=== PATIENT | female | born 1980 | race Caucasian/White ===

== ENCOUNTER 2023-02-01 14:53 | Emergency (ER) | payer SELFPAY ==
[2023-02-01] VITALS (10 sets, daily range): BP systolic 128–154; BP diastolic 79–105; PULSE 81–107; RESP 16–20; TEMP 36.9–37.2; O2SAT 96–100
--- NOTE | ~2023-02-01 | XR_ITS ---
EXAMINATION: XR chest 2V Exam Date/Time: 02/01/2023 16:55 CDT HISTORY: sob, CP, cough x 2 days. Hx asthma Comparison: None available. RESULT: Lines, tubes, and devices: None. Lungs and pleura: Diffuse reticulonodular opacities and cuffing. Cardiomediastinal silhouette: Stable. Other: No acute osseous or upper abdominal finding. IMPRESSION: Pulmonary opacities may represent bronchiolitis, as can be seen with atypical infection, asthma, aspi ration, and small airways disease. Reviewed, dictated and finalized at location K. IMPRESSION: Pulmonary opacities may represent bronchiolitis, as can be seen with atypical i nfection, asthma, aspiration, and small airways disease.
--- NOTE | ~2023-02-01 | CT_ITS ---
EXAMINATION: CTA chest PE protocol DATE: 02/01/2023 19:34 INDICATION: pleuritic chest pain, +dimer TECHNIQUE: Computed tomography angiography (CTA) of the chest was performed with 100 mL Omnipaque-350 intravenous contrast timed to evaluate the pulmonary arteries. Coronal maximum intensity projection 3D-reconstructions were created by the technologist. The dose-length product (DLP) was 226.16 mGy-cm. Automated exposure control and iterative reconstruction technique were employed. COMPARISON: None. FINDINGS: Lung parenchyma and airways: Scattered subtle tree-in-bud and centrilobular opacities with mild bronc hial wall thickening. Airways are patent. Pleura: Unremarkable. Thoracic inlet, axillae and chest wall: Unremarkable. Thoracic aorta: Normal. Mediastinum: Normal. Heart and pericardium: Normal. Coronary artery calcifications: Absent. Upper abdomen: No significant finding. Bones: No acute osseous finding. Pulmonary arteries: Study quality: Adequate. No pulmonary emboli detected. IMPRESSION: No CT evidence of acute pulmonary embolus. Respiratory bronchiolitis. Reviewed, dictated and finalized at location K.
--- NOTE | 2023-02-01 16:52 | ECG_ITS ---
Measurements Intervals [place] Rate: 94 P: 30 AR: 123 QRS: 35 QRSD: 72 T: 49 QT: 351 QTc: 440 Interpretive Statements SINUS RHYTHM CANNOT RULE OUT SEPTAL INFARCT, AGE INDETERMINATE ABNORMAL ECG NO PREVIOUS ECG AVAILABLE FOR COMPARISON Electronically Signed On 02-01-2023 21:24:50 CDT by Solis Mcleod D.O.
--- NOTE | 2023-02-01 16:53 | ED.SOB ---
HPI - SOB/Dyspnea General Chief Complaint: Shortness of Breath/Dyspnea Stated Complaint: vomiting, sob Time Seen by Provider: 02/01/23 16:45 History of Present Illness HPI Narrative: Patient is a 43-year-old female with a history of asthma presenting with chest pain and shortness of breath. Patient states that for the last couple of days she has had left-sided chest pain. States that it is worse with taking a big breath or coughing. States that she has been coughing for the last several days as well. States that she sometimes feels short of breath. States that she used her inhaler earlier today which did seem to help. Patient states that she had 2 episodes of vomiting earlier today. No abdominal pain, constipation, diarrhea, dysuria, hematuria. Denies any leg swelling. Denies numbness or weakness. No fevers or chills. Related Data Allergies Allergy/AdvReac Type Severity Reaction Status Date / Time No Known Allergies Allergy Verified 02/01/23 17:41 Review of Systems Review of Systems: All systems reviewed & are unremarkable except as noted in HPI and below Exam Narrative: GENERAL: Well-appearing, well-nourished, and in no acute distress. HEAD: Normocephalic, atraumatic. EYES: PERRLA and EOMI. ENT: Nares clear, no rhinorrhea or epistaxis. Mucous membranes moist. NECK: Supple. CHEST: No respiratory distress. Faint scattered wheezing, no crackles; +diffuse anterior chest wall tenderness HEART: Regular rate and rhythm. No murmur heard. Normal peripheral pulses. ABDOMEN: Soft, nontender, nondistended EXTREMITIES: Normal range of motion. No edema. SKIN: Warm, dry, no rash. NEURO: No focal deficits. Alert and oriented x3. PSYCH: Normal mood and affect. Course Vital Signs Vital signs: Vital Signs Temperature 98.5 F 02/01/23 15:24 Pulse Rate 107 H 02/01/23 15:24 Respiratory Rate 18 02/01/23 15:24 Blood Pressure 133/85 02/01/23 15:24 Pulse Oximetry 100 02/01/23 15:24 Oxygen Delivery Room Air 02/01/23 15:24 Temperature 98.9 F 02/01/23 21:33 Pulse Rate 81 02/01/23 21:33 Respiratory Rate 18 02/01/23 21:33 Blood Pressure 148/79 H 02/01/23 21:33 Pulse Oximetry 99 02/01/23 21:33 Oxygen Delivery Room Air 02/01/23 17:30 MDM - SOB/Dyspnea MDM Narrative Medical decision making narrative: Patient is a 43-year-old female presenting with several days of chest pain, cough, shortness of breath. Patient was initially tachycardic though this had resolved by the time I evaluated her. Exam is otherwise remarkable for the above. Patient states that she is starting to feel improved currently. EKG per my interpretation shows normal sinus rhythm, normal axis and intervals, no ST elevations or depressions. Blood work with leukocytosis. Troponins are undetectable. Patient is negative for influenza and COVID. D-dimer was elevated so CTA PE study was obtained. There is no evidence of pulmonary embolus. There is some evidence of bronchiolitis. Patient does report a history of asthma and states that its been acting up a bit lately. She received a breathing treatment and states that she is feeling improved. States that she has an inhaler at home. Advised that she use this as needed for her shortness of breath. We will get her started on a Medrol Dosepak. Advised PCP follow-up. States that she needs a number for one which will be provided. Appropriate return precautions given. Patient voiced understanding and is agreeable with plan. Discharged in stable condition. Differential Diagnosis Differential diagnosis: Likely congestive heart failure, community acquired pneumonia, asthma with exacerbation, pulmonary embolism and other (ACS, URI) Medical Records Attestation: I reviewed the patient's medical records. Lab Data Attestation: I reviewed the patient's lab results. 02/01/23 17:34 02/01/23 17:34 Labs: Lab Results 02/01/23 Range/Units 17:34 WBC 13.5 H
[2023-02-01] MEDS: LEVALBUTEROL NEB 1.25 MG/3 ML 2.5 MG INHALATION (17:27)
[2023-02-01] MEDS: IPRATROPIUM BR 0.02% INH SOLN 0.5 MG/2.5 ML VIAL INHALATION (17:27)
[2023-02-01] MEDS: SODIUM CHLORIDE 0.9% IV 1,000 ML 999 ML IV CONT ×2 (17:42→19:17)
[2023-02-01] MEDS: ONDANSETRON INJ 4 MG/2 ML VIAL IV PUSH (17:42)
[2023-02-01 17:49] LABS: Basophils Absolute Auto 0.1 K/mm3 (0.0-0.1); Basophils Percent Auto 0.4 % (0.2-1.2); Eosinophils Absolute Auto 0.1 K/mm3 (0-0.3); Eosinophils Percent Auto 0.7 % (0-4.4); Hemoglobin 14.2 g/dL (12.0-15.0); Immature Granulocyte Absolute 0.03 K/mm3 (0.00-0.031); Immature Granulocyte Percent A 0.2 % (0-0.5); Lymphocytes Absolute Auto 1.43 K/mm3 (0.9-3.2); Lymphocytes Percent Auto 10.6 % (18.3-44.2); Mean Corpuscular Hemoglobin 30.1 pg (26-34); Mean Corpuscular Volume 91.1 fl (80-100); Mean Platelet Volume 9.1 fl (7.4-10.4); Monocytes Absolute Auto 0.9 K/mm3 (0.1-0.6); Monocytes Percent Auto 6.9 % (2.6-8.5); Neutrophils Percent Auto 81.2 % (45.5-73.1); Platelet Count Result 332 k/mm3 (150-375); Red Blood Count 4.72 M/mm3 (4.2-5.4); Red Cell Distribution Width 14.4 % (11.5-14.5); White Blood Count 13.5 K/mm3 (4.5-10.0)
[2023-02-01 17:51] LABS: Alanine Aminotransferase 26 U/L (6-35); Albumin Level 3.7 g/dL (3.5-5.1); Alkaline Phosphatase 120 U/L (38-126); Anion Gap 9 mmol/L (8-16); Aspartate Amino Transferase 38 U/L (14-36); Bilirubin,Total 0.6 mg/dL (0.2-1.3); Blood Urea Nitrogen 2 mg/dL (7-17); Carbon Dioxide 22 mmol/L (22-30); Chloride 106 mmol/L (98-107); Estimated Glomerular Filt Rate > 60; Glucose 92 mg/dL (65-110); Lipase 180 U/L (23-300); Potassium 3.9 mmol/L (3.4-5.0); Sodium 137 mmol/L (137-145)
[2023-02-01 17:55] LABS: INR 0.9; Partial Thromboplastin Time 26.5 SECONDS (22.3-36.8); Prothrombin Time 12.7 Seconds (11.1-14.7)
[2023-02-01 18:00] LABS: Ethanol 85 mg/dL (<10)
[2023-02-01 18:03] LABS: Troponin I < 0.012 ng/mL (0.000-0.034)
[2023-02-01 18:16] LABS: Influenza A QL RT-PCR Negative (Negative); Influenza B QL RT-PCR Negative (Negative); RSV RNA, RT-PCR Negative (Negative); SARS-CoV-2 RNA PCR Negative (Negative)
== END 2023-02-01 21:34 | disposition home or self-care (01) ==
PROVIDERS: Emergency Provider Emergency Medicine
DX: J45.901 Unspecified asthma with (acute) exacerbation (principal); R07.89 Other chest pain; Z20.822 Contact with and (suspected) exposure to COVID-19
CPT/HCPCS: 36415; 71046; 71275; 80053; 80307; 83690; 84484; 85025; 85380; 85610; 85730; 87637; 93005; 94640; 96361; 96374; 99284; J2405; J7030; Q9967

== ENCOUNTER 2023-06-17 11:22 | Emergency (ER) | payer SELFPAY ==
[2023-06-17 11:32] VITALS: BP 124/83; PULSE 103; RESP 18; TEMP 36.9; O2SAT 98
[2023-06-17 11:34] VITALS: BP 124/83; PULSE 103; RESP 18; TEMP 36.9; O2SAT 98
--- NOTE | 2023-06-17 11:35 | ED.SOB ---
HPI - SOB/Dyspnea General Chief Complaint: Shortness of Breath/Dyspnea Stated Complaint: Asthma Exacerbation Time Seen by Provider: 06/17/23 11:35 Source: patient Mode of arrival: ambulatory Limitations: no limitations History of Present Illness HPI Narrative: 43-year-old female with history of asthma presents for medication refill. Reports over the last week with the weather changes and harvesting of garza her asthma has been bothering her. Patient reports that she needs nebulizer solution and a new albuterol inhaler. Patient reports a mild cough with some postnasal drainage. Also has a runny nose. States last night while in bed her told her that she was wheezing in her sleep. Patient denies shortness of breath at this time but states she did have some shortness of breath earlier with exertion and chest tightness. Reports that these are her normal asthma symptoms. Patient is well-appearing. Speaking in full sentences, no respiratory distress. All systems reviewed and negative except as noted above. Related Data Home Medications Medication Instructions Recorded Confirmed albuterol 90 mcg/actuation aerosol See Rx Instructions .Route .COMPLEX 06/17/23 06/17/23 inhaler Allergies Allergy/AdvReac Type Severity Reaction Status Date / Time No Known Allergies Allergy Verified 06/17/23 11:33 Review of Systems Review of Systems: CONSTITUTIONAL: Denies fever, chills, or sweats. EYES: Denies visual changes, redness, or discharge. ENT: Denies rhinorrhea, congestion, sore throat, or otalgia. Reports postnasal drainage. CARDIOVASCULAR: Denies chest pain, palpitations, or edema. RESPIRATORY: Reports cough and dyspnea with exertion. reports wheezing. GASTROINTESTINAL: Denies abdominal pain, nausea, vomiting, or diarrhea. GENITOURINARY: Denies dysuria or hematuria. SKIN: Denies rash or itching. MUSCULOSKELETAL: Denies back pain, joint pain, or myalgia. NEUROLOGIC: Denies headache, numbness, or weakness. PSYCHIATRIC: Denies anxiety or depression. All other systems reviewed are negative, except as documented in HPI. PMFSH Comments At time of signature, agree with nursing past medical, surgical, social and family history. There is no relevant family history pertinent to the presenting complaint. Exam Narrative: GENERAL: This is a well-nourished, well-developed patient, in no apparent distress. HEAD: normocephalic, atraumatic. EYES: PERRL. Sclera clear/white. Vision is grossly intact. EARS: External ears normal, auditory canals clear and without drainage, TMs normal without perforation. Hearing grossly intact. NOSE: External nose normal with Clear nasal drainage no significant erythema or swelling to nares. THROAT: Mucous membranes moist, Clear postnasal drainage without erythema or swelling. NECK: Neck supple, non-tender without lymphadenopathy, masses or thyromegaly. CARDIOVASCULAR: Regular rate and rhythm without murmurs, gallops, or rubs. RESPIRATORY: Very mild expiratory wheeze to lower lung garza. No rales, or rhonchi. SKIN: warm, Dry, intact with no suspicious lesions or rash, good texture and turgor. NEURO: awake, alert, and oriented to person, place and time. There were no obvious focal neurologic abnormalities. EXTREMITIES: No joint tenderness, effusion, or edema noted. No calf tenderness. Negative Homans sign bilaterally. BACK: Nontender without deformity. No CVA tenderness. Course Course Level of Care: Express Care Visit Vital Signs Vital signs: Vital Signs Temperature 36.9 C 06/17/23 11:32 Pulse Rate 103 H 06/17/23 11:32 Respiratory Rate 18 06/17/23 11:32 Blood Pressure 124/83 06/17/23 11:32 Pulse Oximetry 98 06/17/23 11:32 Oxygen Delivery Room Air 06/17/23 11:32 Temperature 36.9 C 06/17/23 11:34 Pulse Rate 103 H 06/17/23 11:34 Respiratory Rate 18 06/17/23 11:34 Blood Pressure 124/83 06/17/23 11:34 Pulse Oximetry 98 06/17/23 11:34
== END 2023-06-17 11:47 | disposition home or self-care (01) ==
PROVIDERS: Emergency Provider Nurse Practitioner Family
DX: J45.909 Unspecified asthma, uncomplicated (principal); Z76.0 Encounter for issue of repeat prescription
CPT/HCPCS: 99213; G0463

== ENCOUNTER 2023-06-24 13:03 | Emergency (ER) | payer SELFPAY ==
--- NOTE | 2023-06-24 13:08 | ED.SOB ---
HPI - SOB/Dyspnea General Chief Complaint: Upper Respiratory Infection Stated Complaint: Shortness of Breath Time Seen by Provider: 06/24/23 13:13 Source: patient and RN notes reviewed Mode of arrival: ambulatory Limitations: no limitations History of Present Illness HPI Narrative: 43-year-old female presents concern for shortness of breath and wheezing. She was seen a week ago prescribe steroids, nebulizer solution, antihistamines. She reports her nebulizer machine is broken. She reports reports she has been using her out inhaler without relief. Patient has a 1 [id number] smoker Related Data Allergies Allergy/AdvReac Type Severity Reaction Status Date / Time No Known Allergies Allergy Verified 06/24/23 13:05 Review of Systems Review of Systems: CONSTITUTIONAL: Denies malaise, chills, sweats, or fever. EYES: Denies visual changes, redness, or discharge. ENT: Denies rhinorrhea, congestion, sinus pain, otalgia and sore throat. CARDIOVASCULAR: Denies chest pain, palpitations, or edema. RESPIRATORY: Reports cough., wheezing, dyspnea. GASTROINTESTINAL: Denies abdominal pain, nausea, vomiting, diarrhea SKIN: Denies rash or itching. MUSCULOSKELETAL: Denies myalgia. NEUROLOGIC: Denies headache. All systems reviewed & are unremarkable except as noted in HPI and below PMFSH Comments At time of signature, agree with nursing past medical, surgical, social and family history. There is no relevant family history pertinent to the presenting complaint Exam Narrative: GENERAL: Well-appearing, well-nourished, and in no acute distress. HEAD: Normocephalic EYES: PERRLA, conjunctivae clear ENT: Nares clear. Mucous membranes moist. NECK: Supple. No lymphadenopathy CHEST: Aeration fair, tight, breath sounds equal. No rhonchi, rales, or stridor. No respiratory distress, speaks in full sentences. HEART: Regular rate and rhythm. No murmur heard. SKIN: Warm, dry, no rash. NEURO: Alert and oriented x3. PSYCH: Normal mood and affect Course Course Emergency Course: Patient is aware of diagnosis, understands and agrees to treatment plan. Anticipatory guidance given. Patient agrees to follow-up as directed and is aware of reasons to seek care at the emergency department. Portions of this record may have been created with voice recognition software Level of Care: Express Care Visit Reevaluation(s) Reevaluation #1: Aeration improves, patient reports improvement in symptoms Date: 06/24/23 Time: 13:40 Vital Signs Vital signs: Reviewed. MDM - SOB/Dyspnea MDM Narrative Medical decision making narrative: Exam findings show no acute concerns or changes; patient is non-toxic appearing and is in no distress. Patient is appropriate for outpatient treatment and follow-up. Differential Diagnosis Differential diagnosis: Likely acute exacerbation of chronic obstructive airways disease, community acquired pneumonia and asthma with exacerbation Lab Data Attestation: I reviewed the patient's lab results. Critical Care Time Critical Care Time Critical Care Time: No Discharge Plan Discharge Clinical Impression: Asthma exacerbation Patient Disposition: Home, Self-Care Condition: Stable Instructions: How to Stop Smoking (ED) Additional Instructions: Take medicines as directed. Visit your primary care doctor if: You have wheezing, shortness of breath, or a cough even if taking medicine to prevent attacks. You have thickening of sputum. Your sputum changes from clear or white to yellow, green, walker, or bloody. You have any problems that may be related to the medicines you are taking (such as a rash, itching, swelling, or trouble breathing). You are using a reliever medicine more than 2 to 3 times per week. Visit the ER if: You are short of breath even at rest or when doing very little physical activity. You develop difficulty eating, drinking, or talking due to asthma symptoms. You have chest pain or you feel that your heart is beat
[2023-06-24 13:11] VITALS: BP 134/85; PULSE 103; RESP 20; TEMP 36.6; O2SAT 97
[2023-06-24 13:19] VITALS: PULSE 103; RESP 20; O2SAT 97
[2023-06-24] MEDS: IPRATROPIUM BR 0.02% INH SOLN 0.5 MG/2.5 ML VIAL INHALATION (13:24)
[2023-06-24] MEDS: ALBUTEROL SULFATE NEB 2.5 MG/3 ML INH INHALATION (13:24)
[2023-06-24 13:37] VITALS: PULSE 96; RESP 20; O2SAT 98
== END 2023-06-24 13:45 | disposition home or self-care (01) ==
PROVIDERS: Emergency Provider Nurse Practitioner
DX: J45.901 Unspecified asthma with (acute) exacerbation (principal)
CPT/HCPCS: 94640; 99213; G0463

== ENCOUNTER 2024-06-06 08:06 | Emergency (ER) | payer SELFPAY ==
--- NOTE | 2024-06-06 08:13 | ED.SKABFB ---
HPI - Skin/Abscess/Foreign Bdy General Chief complaint: Skin/Abscess/Foreign Body Stated complaint: sore nipple and irritated areola Time Seen by Provider: 06/06/24 08:13 Source: patient Mode of arrival: ambulatory Limitations: no limitations History of Present Illness HPI narrative: 44 yo F presents with c/o redness, tenderness to L nipple for approx 3 days. Symptoms started mild and getting progressively worse. Worsening of redness. Denies fever/chills. All systems reviewed and negative except as noted above. Related Data Home Medications Medication Instructions Recorded Confirmed hydroxyzine pamoate 25 mg capsule mg 06/06/24 Allergies Allergy/AdvReac Type Severity Reaction Status Date / Time No Known Allergies Allergy Verified 06/06/24 08:16 Review of Systems Review of Systems: CONSTITUTIONAL: Denies fever, chills, or sweats. EYES: Denies visual changes, redness, or discharge. ENT: Denies rhinorrhea, congestion, sore throat, or otalgia. CARDIOVASCULAR: Denies chest pain, palpitations, or edema. RESPIRATORY: Denies cough or dyspnea. GASTROINTESTINAL: Denies abdominal pain, nausea, vomiting, or diarrhea. GENITOURINARY: Denies dysuria or hematuria. SKIN: Denies rash or itching. Reports redness, tenderness to left nipple. MUSCULOSKELETAL: Denies back pain, joint pain, or myalgia. NEUROLOGIC: Denies headache, numbness, or weakness. PSYCHIATRIC: Denies anxiety or depression. All other systems reviewed are negative, except as documented in HPI. PMFSH Comments At time of signature, agree with nursing past medical, surgical, social and family history. There is no relevant family history pertinent to the presenting complaint. Exam Narrative: GENERAL: This is a well-nourished, well-developed patient, in no apparent distress. HEAD: normocephalic, atraumatic. EYES: PERRL. Sclera clear/white. Vision is grossly intact. EARS: External ears normal NOSE: External nose normal NECK: Neck supple, non-tender without lymphadenopathy, masses or thyromegaly. CARDIOVASCULAR: Regular rate and rhythm without murmurs, gallops, or rubs. RESPIRATORY: Clear to auscultation. Breath sounds equal bilaterally. No wheezes, rales, or rhonchi. SKIN: warm, Dry, intact with no suspicious lesions or rash, good texture and turgor. erythema, swelling, tenderness to L breast tissue. erythema approx. 4 x 5cm diameter. no induration or fluctuance. no nipple discharge. NEURO: awake, alert, and oriented to person, place and time. There were no obvious focal neurologic abnormalities. EXTREMITIES: No joint tenderness, effusion, or edema noted. Course Course Level of Care: Express Care Visit Vital Signs Vital signs: Vital Signs Temperature 36.7 C 06/06/24 08:15 Pulse Rate 95 06/06/24 08:15 Respiratory Rate 16 06/06/24 08:15 Blood Pressure 137/85 06/06/24 08:15 Pulse Oximetry 98 06/06/24 08:15 Oxygen Delivery Room Air 06/06/24 08:15 Temperature 36.7 C 06/06/24 08:16 Pulse Rate 95 06/06/24 08:16 Respiratory Rate 16 06/06/24 08:16 Blood Pressure 137/85 06/06/24 08:16 Pulse Oximetry 98 06/06/24 08:16 Oxygen Delivery Room Air 06/06/24 08:16 Reviewed MDM - Skin/Abscess/Foreign Bdy MDM Narrative Medical decision making narrative: Patient is aware of diagnosis, understands and agrees to treatment plan. Anticipatory guidance given. Patient agrees to follow-up as directed and is aware of reasons to seek care at the emergency department. Portions of this record may have been created with voice recognition software Discharge Plan Discharge Clinical Impression: Infection of breast, left, Cellulitis of left breast Patient Disposition: Home, Self-Care Condition: Stable Instructions: Antibiotic Form, Cellulitis (ED) Additional Instructions: Take antibiotic as prescribed until gone. Take ibuprofen or tylenol every 6 to 8 hours as needed for pain. Apply a warm compress
[2024-06-06 08:15] VITALS: BP 137/85; PULSE 95; RESP 16; TEMP 36.7; O2SAT 98
[2024-06-06 08:16] VITALS: BP 137/85; PULSE 95; RESP 16; TEMP 36.7; O2SAT 98
== END 2024-06-06 08:30 | disposition home or self-care (01) ==
PROVIDERS: Emergency Provider Nurse Practitioner Family; Referring Provider Emergency Medicine
DX: N61.0 Mastitis without abscess (principal); J45.909 Unspecified asthma, uncomplicated; F17.200 Nicotine dependence, unspecified, uncomplicated
CPT/HCPCS: 99213; G0463